=== PATIENT | male | born 1960 | race Caucasian/White ===

== ENCOUNTER 2019-07-16 19:57 | Emergency (ER) | payer OTHER ==
[2019-07-16 20:42] LABS: Absolute Lymphocytes (CBC) 2.2 K/uL (0.7-4.9); Basophils % 0.6 % (0-1.3); Hematocrit 45.7 % (39.6-49.0); Lymphocytes % 41.4 % (15.3-44.8); MPV 9.6 fL (7.6-11.3); RBC Red Blood Cell Count 4.95 M/uL (4.33-5.43)
[2019-07-16 20:46] LABS: Protime INR 0.94
[2019-07-16 21:00] LABS: Albumin 4.4 g/dL (3.4-5.0); Bilirubin Direct 0.3 mg/dL (0-0.2); Bilirubin Total 0.9 mg/dL (0.2-1.0); Magnesium 1.9 mg/dL (1.8-2.4); Potassium 3.6 mmol/L (3.5-5.1); Protein, Total 7.7 g/dL (6.4-8.2); Troponin (Emerg Dept Use Only) 0.02 ng/mL (0.0-0.045)
--- NOTE | 2019-07-16 21:39 | ER ---
Nurse's Notes [facility] Name: Ramon Naranjo Age: 59 yrs Sex: Male : 1960 Arrival Date: 07/16/2019 Time: 19:59 Bed 6 Private MD: Diagnosis: Inhalation of hot air and gases Presentation: 07/16 20:00 Presenting complaint: EMS states: [facility] reports possible exposure to DCP earlier ea today, pt complaining of headache. EMS reports pt BP initially 180/128. On route pt blood pressure 140/110, blood sugar 244. Transition of care: patient was not received from another setting of care. Onset of symptoms was July 16, 2019. Risk Assessment: Do you want to hurt yourself or someone else? Patient reports no desire to harm self or others. Initial Sepsis Screen: Does the patient meet any 2 criteria? HR > 90 bpm. Does the patient have a suspected source of infection? No. Patient's initial sepsis screen is negative. Care prior to arrival: BGL 244. 20:00 Method Of Arrival: EMS: [facility] ea 20:00 Acuity: PACO 3 ea Triage Assessment: 20:06 General: Appears in no apparent distress. Behavior is calm, cooperative, appropriate ea for age. Pain: Complains of pain in headache. Neuro: Level of Consciousness is awake, alert, obeys commands, Oriented to person, place, time, situation. Cardiovascular: Patient's skin is warm and dry. Respiratory: Airway is patent Respiratory effort is even, unlabored, Respiratory pattern is regular, symmetrical. Derm: Skin is pink, warm \\T\\ dry. Historical: - Allergies: 20:06 No Known Allergies; ea - Home Meds: 20:06 Metformin Oral [Active]; ea - PMHx: 20:06 Hypertension; Diabetes - NIDDM; ea - PSHx: 20:06 ankle surgery; ea - Immunization history:: Adult Immunizations up to date. - Social history:: Smoking status: Patient/guardian denies using tobacco. - Ebola Screening: : No symptoms or risks identified at this time. Screenin:05 Abuse screen: Denies threats or abuse. Nutritional screening: No deficits noted. ea Tuberculosis screening: No symptoms or risk factors identified. Fall Risk None identified. Assessment: 20:10 General: Appears in no apparent distress. Behavior is calm, cooperative, appropriate ea for age. General: Pt reports he was at work and smelled a chemical and got an instant headache, reports he got out of there immediately. . Pain: Complains of pain in top of head and forehead. Neuro: Level of Consciousness is awake, alert, obeys commands, Oriented to person, place, time, situation. Cardiovascular: Patient's skin is warm and dry. Respiratory: Airway is patent Respiratory effort is even, unlabored, Respiratory pattern is regular, symmetrical. Derm: Skin is pink, warm \\T\\ dry. 20:20 Reassessment: Attempted to call poison control, placed on hold. Will attempt to call ea again. 20:43 Reassessment: Patient and/or family updated on plan of care and expected duration. Pain ea level reassessed. Patient is alert, oriented x 3, equal unlabored respirations, skin warm/dry/pink. 21:02 Reassessment: Patient and/or family updated on plan of care and expected duration. Pain ea level reassessed. Patient is alert, oriented x 3, equal unlabored respirations, skin warm/dry/pink. 21:20 Reassessment: Patient and/or family updated on plan of care and expected duration. Pain ea level reassessed. Patient is alert, oriented x 3, equal unlabored respirations, skin warm/dry/pink. Pt states he is feeling fine, states "I am about ready to go". 21:47 Reassessment: Patient and/or family updated on plan of care and expected duration. Pain ea level reassessed. Patient is alert, oriented x 3, equal unlabored respirations, skin warm/dry/pink. Discharge instruction given to patient, verbalized the understanding of instruction. Pt left ED ambulatory, pt tolerating well. Vital Signs: 20:04 BP 151 / 104; Pulse 113; Resp 16; Temp 97.6; Pulse Ox 100% on R/A; Weight 90.72 kg; ea Height 5 ft. 8 in. (172.72 cm); 20:48 BP 143 / 99; Pulse 95; Resp 18; Pulse Ox 100% on R/A; ea 21:12 BP 126 / 93; Pulse 92; Resp 18; Pulse Ox 98% on R/A; ea 20:04 Body Mass Index 30.41 (90.72 kg, 172.72 cm) ea ED Course: 19:59 Patient arrived in ED. ea 20:04 Triage completed. ea 20:06 Ludin Augustin MD is Attending Physician. tw4 20:07 Patient has correct armband on for positive identification. Bed in low position. Call ea light in reach. Side rails up X2. 20:08 Arm band placed on right wrist. Patient placed in an exam room, on a stretcher, on ea pulse oximetry. 20:10 Ana Rosa Dejesus, RN is Primary Nurse. ea 20:32 Inserted saline lock: 20 gauge in right forearm, using aseptic technique. Blood oe collected. 21:45 IV discontinued, intact, bleeding controlled, No redness/swelling at site. Pressure ea dressing applied. 21:48 No provider procedures requiring assistance completed. ea Administered Medications: No medications were administered Outcome: 21:37 Discharge ordered by . tw4 21:48 Discharged to home ambulatory. ea 21:48 Condition: stable 21:48 Discharge instructions given to patient. 21:48 Patient left the ED. ea Signatures: David Lombardo Elena, JOYCELYN RN Ludin Smith MD MD tw4
[2019-07-16 22:12] VITALS: TEMP 97.6
[2019-07-16 22:14] VITALS: BP 126/93; O2SAT 98
--- NOTE | 2019-07-17 15:58 | EKG ---
Test Date: 2019-07-16 Test Time: 20:08:25 [employer]: BRIAN MEASUREMENT RESULTS: Intervals: Rate: 98 NE: 152 QRSD: 106 QT: 356 QTc: 454 [place]: P: 67 NE: 152 QRS: 3 T: 80 INTERPRETIVE STATEMENTS: Normal sinus rhythm Possible Left atrial enlargement Nonspecific T wave abnormality Abnormal ECG No previous ECG available for comparison Electronically Signed On 07-17-19 15:54:38 CDT by Erick Hurley
--- NOTE | 2019-07-17 21:56 | EDPHYS ---
Physician Documentation [facility] Name: Ramon Naranjo Age: 59 yrs Sex: Male : 1960 Arrival Date: 07/16/2019 Time: 19:59 Bed 6 Private MD: ED Physician Ludin Augustin HPI: 07/17 05:32 This 59 yrs old Male presents to ER via EMS with complaints of headache. tw4 05:32 The patient complains of pain to the forehead. The patient describes the headache as tw4 aching. Onset: The symptoms/episode began/occurred today. Associated signs and symptoms: The patient has no apparent associated signs or symptoms. Severity of symptoms: At its worst the pain was moderate, in the emergency department the pain is unchanged. The symptoms are alleviated by nothing. the symptoms are aggravated by inhalation. The patient has not experienced similar symptoms in the past. Historical: - Allergies: 07/16 20:06 No Known Allergies; ea - Home Meds: 20:06 Metformin Oral [Active]; ea - PMHx: 20:06 Hypertension; Diabetes - NIDDM; ea - PSHx: 20:06 ankle surgery; ea - Immunization history:: Adult Immunizations up to date. - Social history:: Smoking status: Patient/guardian denies using tobacco. - Ebola Screening: : No symptoms or risks identified at this time. ROS: 07/17 05:32 Constitutional: Negative for fever, chills, and weight loss, Eyes: Negative for injury, tw4 pain, redness, and discharge, Cardiovascular: Negative for chest pain, palpitations, and edema, Respiratory: Negative for shortness of breath, cough, wheezing, and pleuritic chest pain, Abdomen/GI: Negative for abdominal pain, nausea, vomiting, diarrhea, and constipation, Back: Negative for injury and pain, MS/Extremity: Negative for injury and deformity, Skin: Negative for injury, rash, and discoloration. 05:32 Neuro: Positive for headache. tw4 Exam: 05:32 Constitutional: This is a well developed, well nourished patient who is awake, alert, tw4 and in no acute distress. Head/Face: Normocephalic, atraumatic. Chest/axilla: Normal chest wall appearance and motion. Nontender with no deformity. No lesions are appreciated. Cardiovascular: Regular rate and rhythm with a normal S1 and S2. No gallops, murmurs, or rubs. Normal PMI, no JVD. No pulse deficits. Respiratory: Lungs have equal breath sounds bilaterally, clear to auscultation and percussion. No rales, rhonchi or wheezes noted. No increased work of breathing, no retractions or nasal flaring. Abdomen/GI: Soft, non-tender, with normal bowel sounds. No distension or tympany. No guarding or rebound. No evidence of tenderness throughout. Back: No spinal tenderness. No costovertebral tenderness. Full range of motion. MS/ Extremity: Pulses equal, no cyanosis. Neurovascular intact. Full, normal range of motion. Neuro: Awake and alert, GCS 15, oriented to person, place, time, and situation. Cranial nerves II-XII grossly intact. Motor strength 5/5 in all extremities. Sensory grossly intact. Cerebellar exam normal. Normal gait. Vital Signs: 07/16 20:04 BP 151 / 104; Pulse 113; Resp 16; Temp 97.6; Pulse Ox 100% on R/A; Weight 90.72 kg; ea Height 5 ft. 8 in. (172.72 cm); 20:48 BP 143 / 99; Pulse 95; Resp 18; Pulse Ox 100% on R/A; ea 21:12 BP 126 / 93; Pulse 92; Resp 18; Pulse Ox 98% on R/A; ea 20:04 Body Mass Index 30.41 (90.72 kg, 172.72 cm) ea MDM: 20:06 Patient medically screened. tw4 07/17 05:32 Data reviewed: vital signs, nurses notes. Data interpreted: Pulse oximetry: tw4 Interpretation: normal. Counseling: I had a detailed discussion with the patient and/or guardian regarding: the historical points, exam findings, and any diagnostic results supporting the discharge/admit diagnosis. Special discussion: I discussed with the patient/guardian in detail that at this point there is no indication for admission to the hospital. It is understood, however, that if the symptoms persist or worsen the patient needs to return immediately for re-evaluation. 07/16 20:13 Order name: Basic Metabolic Panel 07/16 20:13 Order name: CBC with Diff 07/16 20:13 Order name: LFT's 07/16 20:13 Order name: Magnesium 07/16 20:13 Order name: NT PRO-BNP 07/16 20:13 Order name: PT-INR 07/16 20:13 Order name: Troponin (emerg Dept Use Only) 07/16 20:13 Order name: EKG; Complete Time: 20:16 07/16 20:13 Order name: Cardiac monitoring; Complete Time: 20:50 07/16 20:13 Order name: EKG - Nurse/Tech; Complete Time: 20:50 07/16 20:13 Order name: IV Saline Lock; Complete Time: 20:50 07/16 20:13 Order name: Labs collected and sent; Complete Time: 20:50 07/16 20:13 Order name: O2 Per Protocol; Complete Time: 20:50 07/16 20:13 Order name: O2 Sat Monitoring; Complete Time: 20:50 Administered Medications: No medications were administered Disposition: 07/16/19 21:37 Discharged to Home. Impression: Inhalation of hot air and gases. - Condition is Stable. - Discharge Instructions: Chemical Inhalation Injury, Adult. - Medication Reconciliation Form, Thank You Letter, Antibiotic Education, Prescription Opioid Use form. - Follow up: Private Physician; When: Upon discharge from the Emergency Department; Reason: If symptoms return, Recheck today's complaints, Continuance of care. - Problem is new. - Symptoms have improved. Signatures: Dispatcher [employer] EDMS Ana Rosa Dejesus RN RN ea Wadley, Terrence, MD MD tw4 Corrections: (The following items were deleted from the chart) 07/16 21:48 21:37 07/16/2019 21:37 Discharged to Home. Impression: Inhalation of hot air and gases. ea Condition is Stable. Forms are Medication Reconciliation Form, Thank You Letter, Antibiotic Education, Prescription Opioid Use. Follow up: Private Physician; When: Upon discharge from the Emergency Department; Reason: If symptoms return, Recheck today's complaints, Continuance of care. Problem is new. Symptoms have improved. tw4
== END 2019-07-16 21:48 | disposition home or self-care (01) ==
LOC: ER 19:57
DX: T59.91XA Toxic effect of unspecified gases, fumes and vapors, accidental (unintentional), initial encounter (principal); X58.XXXA Exposure to other specified factors, initial encounter; Y93.9 Activity, unspecified; Y92.89 Other specified places as the place of occurrence of the external cause; Y99.0 Civilian activity done for income or pay
CPT/HCPCS: 36415; 80048; 80076; 83735; 83880; 84484; 85025; 85610; 93005; 99284